=== PATIENT | male | born 1940 | race Caucasian/White ===

== ENCOUNTER 2016-04-29 16:03 | Emergency (ER) | payer MEDICARE, OTHER ==
[2016-04-29 17:03] LABS: ABSOLUTE NEUTROPHIL COUNT 4.8 K/mm3 (1.8-7.7); BASO % 0.3 % (0.2-1.0); EOS # 0.1 (0.0-0.5); EOS % 1.1 % (0.9-2.9); HEMATOCRIT 37.6 % (32.0-52.0); HEMOGLOBIN 12.4 gm/l (14.0-18.0); IMM NEUT% 0.3 % (0-1); LYMPH # 0.9 (1.0-4.8); LYMPH % 13.6 % (15-45); MEAN CELL VOLUME 95.7 fl (80.0-94.0); MEAN CORPUSCULAR HEMOGLOBIN 31.6 pg (27.0-31.0); MEAN PLATELET VOLUME 11.4 fl (7.4-10.4); MONO # 0.5 (0.0-0.8); MONO % 7.5 % (4-12); NEUT % 77.2 % (43-75); PLATELET COUNT 170 K/mm3 (130-400)
[2016-04-29 17:21] LABS: INR 2.65; PROTHROMBIN TIME 29.3 SECONDS (9.3-11.4)
[2016-04-29 17:26] LABS: ALB/GLOB RATIO 1.4 (>1.0); ALBUMIN 3.8 gm/dL (3.5-5.7); CALCIUM 9.3 mg/dL (8.6-10.3)
--- NOTE | 2016-04-29 17:28 | RAD ---
[facility] Two-view chest Comparison: 02/12/2014 Clinical history: Shortness of breath Findings: 2 views of the chest are submitted. Heart is not enlarged. There is calcification of the aorta. Mediastinum and hilar structures are normal. The vague mild increased density at the left cardiac apex is not significantly changed from the January 2014 exam. There is no overt failure pleural effusion or pneumothorax. Costochondral calcifications are identified. 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 No acute cardiopulmonary process 2. Mild increased density at the left cardiac apex unchanged from January 2014.
[2016-04-29 17:32] LABS: TROPONIN I 0.03 ng/ml (0.0-0.06)
[2016-04-29 17:36] LABS: CKMB ISOENZYME 2.8 ng/ml (0.6-6.3)
[2016-04-29] MEDS ORDERED: KETAMINE HCL 50 MG/1 ML 10ML VIAL ONE (18:33)
[2016-04-29] MEDS ORDERED: PROPOFOL 20 ML IV ONE (18:34)
[2016-04-29] MEDS ORDERED: SODIUM CHLORIDE 0.9% 1,000 ML ONE (18:41)
== END 2016-04-29 19:55 | disposition home or self-care (01) ==
LOC: ED 16:03
DX: I48.91 Unspecified atrial fibrillation (principal); E78.00 Pure hypercholesterolemia, unspecified; I10 Essential (primary) hypertension; G89.29 Other chronic pain; M54.9 Dorsalgia, unspecified; Z79.01 Long term (current) use of anticoagulants; Z79.899 Other long term (current) drug therapy
CPT/HCPCS: 85025; 82553; 80053; 83735; 85610; 84484; 71020; 99284 ×2; 92960 ×2; J7030